=== PATIENT | female | born 2000 | race Two or more races ===

== ENCOUNTER 2019-10-23 22:22 | Emergency (ER) | payer SELFPAY ==
[2019-10-23 23:02] LABS: ABSOLUTE EOSINOPHILS # (AUTO) 0.2 10^3/uL (0.0-0.6); ABSOLUTE MONOCYTES (AUTO) 0.7 10^3/uL (0.1-1.4); ABSOLUTE NEUT (AUTO) 6.4 10^3/uL (1.7-8.2); BASOPHILS % (AUTO) 0.4 % (0-2); EOSINOPHILS % (AUTO) 1.9 % (0-6); HEMATOCRIT 37.3 % (36.0-47.0); HEMOGLOBIN 12.4 g/dL (12.0-15.5); LYMPHOCYTES % (AUTO) 21.2 % (13-45); MEAN CORPUSCULAR HGB CONC 33.2 g/dL (32.0-36.0); MEAN CORPUSCULAR VOLUME 84 fl (80-97); MONOCYTES % (AUTO) 7.3 % (3-13); PLATELET COUNT 231 10^3/uL (150-450); RED BLOOD COUNT 4.42 10^6/uL (3.72-5.28); RED CELL DISTRIBUTION WIDTH 13.6 % (11.5-14.0); SEGMENTED NEUTROPHILS % (AUTO) 69.2 % (42-78); TOTAL CELLS COUNTED % (AUTO) 100 %; WHITE BLOOD COUNT 9.3 10^3/uL (4.0-10.5)
--- NOTE | 2019-10-23 23:16 | ER Document Report ---
ED Medical Screen (RME) - General Chief Complaint: Abdominal Pain Stated Complaint: LOWER ABDOMINAL PAIN Time Seen by Provider: 10/23/19 23:10 Mode of Arrival: Ambulatory Information source: Patient Notes: Patient presents with right lower quad abdominal pain that started this morning. She reports it was come and go and coming and going. She reports she had something to eat later on in the day and pain has become constant sharp like somebody stabbing her. Denies pain with void denies vaginal discharge. Reports some nausea. Reports it hurts more when she walks. Increased pain with heel tap. Patient still has her gallbladder and appendix. Denies history of ovarian cyst. I have greeted and performed a rapid initial assessment of this patient. A comprehensive ED assessment and evaluation of the patient, analysis of test results and completion of the medical decision making process will be conducted by additional ED providers. Dictation of this chart was performed using voice recognition software; therefore, there may be some unintended grammatical errors. TRAVEL OUTSIDE OF THE [place] IN LAST 30 DAYS: No Past Medical History - Social History Frequency of alcohol use: None Drug Abuse: None Course - Laboratory Result Diagrams: 10/23/19 22:46 10/23/19 22:46
[2019-10-23 23:17] LABS: ALBUMIN 3.5 g/dL (3.5-5.0); ALKALINE PHOSPHATASE 131 U/L (38-126); ANION GAP 7 (5-19); ASPARTATE AMINO TRANSFERASE 26 U/L (14-36); BILIRUBIN,DIRECT 0.1 mg/dL (0.0-0.4); BILIRUBIN,TOTAL 0.3 mg/dL (0.2-1.3); BLOOD UREA NITROGEN 13 mg/dL (7-20); CARBON DIOXIDE 25 mmol/L (22-30); CHLORIDE 105 mmol/L (98-107); GLUCOSE 95 mg/dL (75-110); POTASSIUM 3.9 mmol/L (3.6-5.0); TOTAL PROTEIN 6.4 g/dL (6.3-8.2)
[2019-10-23 23:19] LABS: APPEARANCE,URINE CLEAR; BILIRUBIN,URINE NEGATIVE (NEGATIVE); COLOR,URINE YELLOW; GLUCOSE, URINE NEGATIVE (NEGATIVE); KETONES,URINE NEGATIVE (NEGATIVE); LEUKOCYTE ESTERASE,URINE TRACE (NEGATIVE); NITRITE,URINE NEGATIVE (NEGATIVE); PROTEIN,URINE NEGATIVE (NEGATIVE); URINE SPECIFIC GRAVITY 1.013
[2019-10-23] MEDS ORDERED: NORMAL SALINE 1000 ML 1,000 ML IV ONE (23:25)
[2019-10-23] MEDS ORDERED: ONDANSETRON HCL INJ/PF 4 MG/2 ML SDV IV ONE (23:25)
[2019-10-23] MEDS ORDERED: MORPHINE SULFATE 10 MG/ML INJ IV ONE (23:25)
--- NOTE | 2019-10-23 23:29 | ER Document Report ---
ED GI/ - General Chief Complaint: Abdominal Pain Stated Complaint: LOWER ABDOMINAL PAIN Time Seen by Provider: 10/23/19 23:10 Mode of Arrival: Ambulatory Notes: Patient is a 18-year-old female that comes to the emergency department for chief complaint of right lower quadrant pain. She states the pain started this mo rning and has been progressively worsening throughout the day. She denies other locations of pain, nausea/vomiting, fever/chills, vaginal bleeding or discharge. She denies any surgeries or daily medications. She states she took ibuprofen earlier without any improvement. She states that it hurts to walk. TRAVEL OUTSIDE OF THE [place] IN LAST 30 DAYS: No - Related Data Allergies/Adverse Reactions: No Known Allergies Allergy (Unverified 10/23/19 23:36) Past Medical History - General Information source: Patient - Social History Smoking Status: Never Smoker Frequency of alcohol use: None Drug Abuse: None Lives with: Family Family History: Reviewed & Not Pertinent Patient has suicidal ideation: No Patient has homicidal ideation: No Surgical Hx: Negative - Immunizations Immunizations up to date: Yes Hx Diphtheria, Pertussis, Tetanus Vaccination: Yes Review of Systems - Review of Systems Constitutional: No symptoms reported EENT: No symptoms reported Cardiovascular: No symptoms reported Respiratory: No symptoms reported Gastrointestinal: See HPI Genitourinary: No symptoms reported Female Genitourinary: No symptoms reported Musculoskeletal: No symptoms reported Skin: No symptoms reported Hematologic/Lymphatic: No symptoms reported Neurological/Psychological: No symptoms reported Physical Exam - Vital signs Vitals: Temp Pulse Resp BP Pulse Ox 97.7 F 66 20 113/57 L 97 10/23/19 22:38 10/23/19 22:38 10/23/19 22:38 10/23/19 22:38 10/23/19 22:38 - Notes Notes: GENERAL: Alert, interacts well. No acute distress. HEAD: Normocephalic, atraumatic. EYES: Pupils equal, round, and reactive to light. Extraocular movements intact. ENT: Oral mucosa moist, tongue midline. Oropharynx unremarkable. NECK: Full range of motion. Supple. Trachea midline. LUNGS: Clear to auscultation bilaterally, no wheezes, rales, or rhonchi. No res piratory distress. HEART: Regular rate and rhythm. No murmur ABDOMEN: Patient is tender in the right lower quadrant, this is specific and reproducible. There is mild tenderness of the suprapubic area as well. Remaining abdomen seems soft and benign. Bowel sounds present. GENITOURINARY: No discharge, tenderness, bleeding, or other abnormality noted. Exam performed with Mark RN at bedside EXTREMITIES: Moves all 4 extremities spontaneously. No edema, normal radial and dorsalis pedis pulses bilaterally. No cyanosis. BACK: no cervical, thoracic, lumbar midline tenderness. No saddle anesthesia, n ormal distal neurovascular exam. Moves all extremities in full range of motion. NEUROLOGICAL: Alert and oriented x3. Normal speech. Cranial nerves II through XII grossly intact. PSYCH: Normal affect, normal mood. SKIN: Warm, dry, normal turgor. No rashes or lesions noted. Course - Re-evaluation Re-evalutation: I did review CBC, chemistry, urinalysis, test from triage. I also reviewed the CAT scan. These are all negative for acute findings. Appendix was visualized and reportedly normal. There does appear to be a lot of stool on the right side as well. On initial presentation patient does have specific right lower quadrant tenderness. I discussed the patient. Pelvic exam was performed but this was unremarkable, ultrasound was then performed to rule out torsion or cyst as cause of the pain but this was also negative. On reevaluation patient's abdomen is much more benign but she still has some tenderness. I did discuss with patient possibility of having a surgeon evaluate her for possible observation, she declined. She states she would prefer to go home and see what time will tell. She states that she will come back if she worsens in any way, this was discussed in detail. is supportive with this plan, patient was discharged with return precautions, treatment for possible lymph node with anti-inflammatories, treatment with stool softener. Patient states appreciation and agreement. - Vital Signs Vital signs: Temp Pulse Resp BP Pulse Ox 97.3 F 56 L 18 109/66 98 10/24/19 03:13 10/24/19 03:13 10/24/19 03:13 10/24/19 03:13 10/24/19 03:13 - Laboratory Result Diagrams: 10/23/19 22:46 10/23/19 22:46 Laboratory results interpreted by me: 10/23/19 10/23/19 22:46 23:00 Alkaline Phosphatase 131 H Urine Urobilinogen 2.0 H Ur Leukocyte Esterase TRACE H Discharge - Discharge Clinical Impression: Right lower quadrant pain Condition: Stable Disposition: HOME, SELF-CARE Additional Instructions: Your work-up is reassuring including appendix looks normal on imaging, normal ovaries, and unremarkable blood work. I believe the pain is from a combination of lymph nodes and bowel pain, I recommend the anti-inflammatory as prescribed, the stool softener, and I suspect symptoms will simply resolve with time. Please come back immediately if you worsen including vomiting, fever, returned or severely worsening pain, or any other concerning or worsening symptoms. Prescriptions: Docusate Sodium [Colace 100 mg Capsule] 100 mg PO ASDIR PRN #30 capsule PRN Reason: Naproxen 500 mg PO BID PRN #20 tablet PRN Reason:
--- NOTE | 2019-10-24 00:43 | RADIOLOGY REPORT (SQ) ---
CT ABDOMEN PELVIS WITH IV CONTRAST EXAM DATE: 10/23/2019 11:14 PM [employer] HISTORY: Right lower quadrant pain. COMPARISON: None. TECHNIQUE: CT scan of the abdomen and pelvis was performed with IV contrast. This exam was performed according to our departmental dose-optimization program, which includes automated exposure control, adjustment of the mA and/or kV according to patient size and/or use of iterative reconstruction technique. FINDINGS: The lung bases are clear. No pleural or pericardial effusions. There is no hiatal hernia. The liver, spleen, pancreas, gallbladder, adrenal glands, and kidneys are unremarkable. No urinary stones are seen. The pelvic organs are also unremarkable. No small bowel obstruction. The appendix is normal. There is no evidence of diverticulitis. No intraperitoneal free fluid or free air is identified. The aorta is normal caliber. No acute bony findings are seen. There is no pathologic body wall hernia. IMPRESSION: No acute abdominal or pelvic findings.
[2019-10-24 01:42] LABS: RBCS (WET MOUNT) NO RBCS SEEN; T.VAGINALIS (WET MOUNT) NO TRICHOMONAS SEEN; WBCS (WET MOUNT) FEW WBCS SEEN; YEAST (WET MOUNT) NO YEAST SEEN
--- NOTE | 2019-10-24 02:36 | RADIOLOGY REPORT (SQ) ---
EXAM DESCRIPTION: US PELVIS TRANSVAGINAL COMPLETED DATE/TME: 10/24/2019 01:33 CLINICAL HISTORY: 18 years, Female, right lower abd/pelvic pain COMPARISON: None. TECHNIQUE: Transvaginal pelvic ultrasound with grayscale and color images LIMITATIONS: None. FINDINGS: Retroverted uterus measures 8.7 x 4.7 x 6.0 cm. The endometrium measures 1.4 cm in thickness. The cervix measures 2.8 cm in length. Both ovaries demonstrate normal vascular flow. The right ovary measures 3.2 x 2.6 x 2.2 cm. The left ovary measures 2.2 x 1.8 x 1.6 cm. No free fluid is identified. IMPRESSION: Unremarkable pelvic ultrasound. copyright 2010 [employer]- All Rights Reserved
[2019-10-24] MEDS ORDERED: KETOROLAC TROMETHAMINE INJ/PF 30 MG/1 ML SDV IV ONE (03:06)
[2019-10-24 03:07] LABS: CHLAM PCR NOT DETECTED (NOT DETECT)
[2019-10-24 03:14] VITALS: BP 109/66
== END 2019-10-24 03:35 | disposition home or self-care (01) ==
LOC: ER 22:22
DX: R10.31 Right lower quadrant pain (principal)
CPT/HCPCS: 36415; 83690; 85025; 81025; 80053; 81001; J2270; J2405; J7030; 74177; 76830; 87210; 87491; 87591; 93976; J1885